=== PATIENT | female | born 1955 | race Caucasian/White ===

== ENCOUNTER 2017-03-10 16:16 | Outpatient (CLI) ==
--- NOTE | 2017-03-10 16:31 | DI ---
EXAM: Chest two view, frontal and lateral views. HISTORY: Cough. COMPARISON: 03/10/2016. FINDINGS: The heart size is normal. There is no pulmonary vascular congestion. The lungs are selene r save for calcified granulomatous changes. No pleural effusion or pneumothorax is seen. No acute osseous abnormality identified. Since the prior study, there has been no significant interval leyva e. IMPRESSION: No acute cardiopulmonary process.
== END 2017-03-10 16:17 | disposition home or self-care (01) ==
LOC: RAD 16:16
PROVIDERS: ATTEND Family Medicine
DX: R05 Cough (principal)

== ENCOUNTER 2017-03-22 15:14 | Outpatient (CLI) ==
--- NOTE | 2017-03-22 15:40 | DI ---
EXAM: Three views of the left foot. History: Left foot trauma. Comparison: Left foot radiograph 02/09/2010 Findings: No acute fracture or dislocation. Mild hallux valgus deformity. Joint spaces are relativ pam preserved. Tiny plantar spur. Impression: 1. No acute osseous abnormality. 2. Mild hallux valgus deformity.
== END 2017-03-22 15:15 | disposition home or self-care (01) ==
LOC: RAD 15:14
PROVIDERS: ATTEND Family Medicine
DX: S99.922A Unspecified injury of left foot, initial encounter (principal)

== ENCOUNTER 2023-01-02 13:34 | Inpatient (IN) ==
[2023-01-02] MEDS ORDERED: MORPHINE 4 MG/ML SYRINGE IVP ONE (14:09)
[2023-01-02] MEDS ORDERED: SODIUM CHLORIDE 1,000 ML IV STA (14:09)
[2023-01-02] MEDS ORDERED: ZOFRAN 4 MG/2 ML IVP STA (14:09)
[2023-01-02 14:42] LABS: HEMOGLOBIN 14.5 g/dl (12.0-16.0); MEAN CORPUSCULAR HEMOGLOBIN 31.1 pg (27.0-31.0); MEAN CORPUSCULAR HGB CONC 32.2 (31.8-35.4); MEAN CORPUSCULAR VOLUME 96.6 fl (81.0-99.0); PLATELET COUNT 225 10^3/uL (140-440); RDW COEFFICIENT OF VARIATION 14.8 % (11.6-14.8); RED BLOOD COUNT 4.66 10^6/ul (4.20-5.40); WHITE BLOOD COUNT 10.12 K/ul (4.6-10.2)
--- NOTE | 2023-01-02 14:52 | ED.PDOC ---
General ED Provider: Dr. JOSE ELIAS BURKS MD Chief Complaint: Hip Pain/Injury Stated Complaint: fall; pain in left hip and left foot. Time Seen by Provider: 01/02/23 14:09 Mode of Arrival: Wheelchair Information Source: Patient Exam Limitations: No limitations Primary Care Provider: KEITH BLACK Nursing and Triage Documentation Reviewed and Agree: Yes Does patient meet sepsis criteria?: No System Inflammatory Response Syndrome: Not Applicable Sepsis Protocol: For patient's 13 years and over: Temp is 96.8 and below OR 101 and greater Pulse >90 BPM Resp >20/minute Acutely Altered Mental Status Are patient's symptoms suggestive of a new infection, such as: -Pneumonia -Skin, Soft Tissue -Endocarditis -UTI -Bone, Joint Infection -Implantable Device -Acute Abdominal Infection -Wound Infection -Meningitis -Blood Stream Catheter Infection -Unknown Musculoskeletal Complaint Exam Hip/Pelvis Complaint/Exam Location of Pain: Reports Left Mechanism of Injury: Reports Trauma Onset/Duration: just [employer]IST Symptoms Are: Still present Initial Severity: Moderate Current Severity: Moderate Character: Reports Sharp Aggravating: Reports Movement and Weight bearing Alleviating: Reports None Associated Signs and Symptoms: Denies Swelling, Redness, Bruising, Fever, Weakness, Dizziness, Syncope, Abdominal pain or Knee pain Able to Bear Weight: No Septic Arthritis Risk Factors: Reports None Related Surgical History: Reports None Pelvis Palpation: Stable Hip/Pelvis Findings: Absent Extremity shortened, Swelling, Ecchymosis, Erythema, Warmth or Blisters Tenderness: Present Left Range of Motion Limited In: Present Flexion, Abduction, Adduction, Internal rotation and External rotation NV Bundle Intact Distal to Injury: Yes Differential Diagnoses: Arthritis, Bursitis, Contusion, Dislocation, Fracture, Sprain and Strain Review of Systems Review Of Systems Constitutional: Reports No symptoms Eyes: Reports No symptoms Ears, Nose, Mouth, Throat: Reports No symptoms Respiratory: Reports No symptoms Cardiac: Reports No symptoms GI: Reports No symptoms : Reports No symptoms Musculoskeletal: Reports Joint pain; Denies Back pain, Joint swelling or Muscle stiffness Skin: Reports No symptoms Neurological: Reports No symptoms Endocrine: Reports No symptoms Hematologic/Lymphatic: Reports No symptoms All Other Systems: Reviewed and Negative Physical Exam Physical Exam Appearance: Reports Well-appearing, Well-nourished and Thin Ill-appearing: None Pain Distress: Moderate Eyes: Reports VALDEZ, EOMI and Conjunctiva clear ENT: Reports Nose normal and Oropharynx normal Neck: Supple Respiratory: Reports Airway patent, Breath sounds equal, Respirations nonlabored and Wheezes; Denies Crackles, Rhonchi or Retractions Cardiovascular: Reports RRR, Pulses normal and No murmur GI/: Reports Soft and Nontender Musculoskeletal: Reports Limited ROM and Other (on inspection of bilateral lower ext. the left leg is about 1 inch shorter than the right. there is no deformity of the lower ext. there is exquisite tenderness to all / any movement of the left hip. there is no ability to test ROM due to her pain complaint. ) Skin: Reports Warm, Dry and Normal color Neurological: Reports Sensation intact and Motor intact Psychiatric: Reports Affect appropriate Interpretation EKG Interpretation EKG Interpretation By: ED Physician Time of EKG #1: 14:17 Rate: Normal Rhythm: Sinus Ectopy: None West: NL ST Segment: Normal Interpretation: normal EKG Radiology Interpretation Radiology Interpretation By: Radiologist Radiology Results: Positive Exam Interpreted: CT Scan Xray Comments: displaced superior ramus fracture extends to inferior ramus Physician Notification Case Discussed Physician Notified: Dr. Black Time of Notification: 17:50 Comments: discussed this pt. with Dr. Black. He would prefer the hospitalist admit. Physician Notified: [place] - hospitalist Time of Notification: 17:58 Comments: discussed pt. with hospitalist, who will agree to admit the pt. for pain control and PT Critical Care Note Critical Care Note Total Critical Care Time (mins): 0 Course Course 01/02/23 14:31 01/02/23 14:31 Orders, Labs, Meds: Lab Review 01/02/23 01/02/23 14:31 15:15 WBC 10.12 RBC 4.66 Hgb 14.5 Hct 45.0 MCV 96.6 MCH 31.1 H MCHC 32.2 RDW Coeff of Katharina 14.8 Plt Count 225 Neutrophils % (Manual) 90.0 H Lymphocytes % (Manual) 5.0 L Monocytes % (Manual) 5.0 Anisocytosis Not present Sodium 138.8 Potassium 4.37 Chloride 107.3 H Carbon Dioxide 27.1 Anion Gap 8.77 BUN 14.8 Creatinine 0.87 Estimated GFR (MDRD) 65.00 BUN/Creatinine Ratio 17.01 Glucose 87.0 Calcium 8.89 Total Bilirubin 0.36 AST 25.1 ALT 20.9 Alkaline Phosphatase 139.4 Total Protein 6.99 Albumin 4.09 Globulin 2.90 Albumin/Globulin Ratio 1.41 Urine Color Yellow Urine Clarity Clear Urine pH 7.0 Ur Specific [place] 1.015 Urine Protein Negative Urine Glucose (UA) Negative Urine Ketones Negative Urine Blood Negative Urine Nitrite Negative Urine Bilirubin Negative Urine Urobilinogen 0.2 Ur Leukocyte Esterase Negative Orders Category Date Time Status EKG-(ED ONLY) Stat CARDIO 01/02/23 14:09 Completed ED CATHETER INSERTION AND CARE .ONCE EMERGENCY 01/02/23 17:09 Active CBC W/ AUTO DIFF Stat LAB 01/02/23 14:31 Completed CMP [COMPREHENSIVE METABOLIC PANEL] Stat LAB 01/02/23 14:31 Completed MANUAL DIFFERENTIAL Stat LAB 01/02/23 14:31 Completed URINALYSIS C & S IF INDICATED Stat LAB 01/02/23 15:15 Completed Diazepam Syringe [Valium Syringe] Meds 01/02/23 15:45 Discontinued 5 mg IVP ONCE ONE Morphine Sulfate [Morphine 4 mg/ml Syringe] Meds 01/02/23 14:09 Discontinued 4 mg IVP ONCE ONE Ondansetron HCl/Pf [Zofran 4 mg/2 ml] Meds 01/02/23 14:09 Discontinued 4 mg IVP ONCE STA Sodium Chloride 0.9% [Sodium Chloride] 1,000 ml Meds 01/02/23 14:09 [address]con tin[address] IV B[address] PELVIS W/O CONTRAST Stat RADS 01/02/23 15:59 Completed FOOT, LEFT 3 VIEWS Stat RADS 01/02/23 14:38 Completed HIP, LEFT 2VWS W OR W/O PELVIS Stat RADS 01/02/23 14:38 Completed Medications Discontinued Medications Generic Name Dose Route Start Last Admin Trade Name Denilson PRN Reason Stop Dose Admin Diazepam 5 mg 01/02/23 15:45 01/02/23 15:59 Diazepam 10 Mg/2 Ml Disp.Syrin IVP 01/02/23 15:46 5 mg ONCE ONE Administration Sodium Chloride 1,000 mls @ 1,000 mls/hr 01/02/23 14:09 01/02/23 14:28 Sodium Chloride IV 01/02/23 15:08 1,000 mls/hr BOLUS STA Administration Morphine Sulfate 4 mg 01/02/23 14:09 01/02/23 14:29 Morphine Sulfate 4 Mg/Ml Syringe IVP 01/02/23 14:10 4 mg ONCE ONE Administration Ondansetron HCl 4 mg 01/02/23 14:09 01/02/23 14:29 Ondansetron Hcl/Pf 4 Mg/2 Ml Sdv IVP 01/02/23 14:10 4 mg ONCE STA Administration Vital Signs: Temp Pulse Resp BP Pulse Ox 01/02/23 13:40 97.9 F 71 16 123/76 96 Discharge Plan Discharge Patient Disposition: PLACED OBSERVATION Discharge Problem: Closed fracture of inferior pubic ramus, Closed fracture of superior ramus of l eft pubis Prescriptions: No Action sertraline 100 mg tablet 100 mg PO DAILY budesonide-formoterol [Symbicort] 160-4.5 mcg/actuation HFA aerosol inhaler 1 inh inhalation BID hydrocodone-acetaminophen 5-325 mg tablet 1 tab PO Q6H PRN (Reason: moderate pain (scale score 5-6)) Spiriva Respimat 2.5 mcg/actuation mist 2 inh inhalation DAILY lamotrigine [Lamictal] 200 MG tablet 400 mg PO BID zonisamide 100 MG capsule 100 mg PO BID lorazepam [Ativan] 0.5 MG tablet 0.5 mg PO BID PRN (Reason: Anxiety) esomeprazole magnesium 40 MG capsule,delayed release(DR/EC) 40 mg PO DAILY fingolimod [Gilenya] 0.5 MG capsule 0.5 mg PO DAILY Did you review [place] MASTIC[place] for ALL controlled substances?: Not Applicable ED Provider: JOSE ELIAS BURKS Condition: Stable Physician Progress Note: []
[2023-01-02 14:56] LABS: ALANINE AMINOTRANSFERASE 20.9 U/L (0-35); ALBUMIN 4.09 g/dL (3.5-5.0); ALKALINE PHOSPHATASE 139.4 U/L (53-141); ASPARTATE AMINO TRANSFERASE 25.1 U/L (14-36); BILIRUBIN,TOTAL 0.36 mg/dL (0.2-1.3); BLOOD UREA NITROGEN 14.8 mg/dL (7-17); CALCIUM 8.89 mg/dL (8.4-10.2); CARBON DIOXIDE 27.1 mmol/L (22-30.0); CHLORIDE 107.3 mmol/L (98-107); CREATININE 0.87 mg/dL (0.60-1.30); POTASSIUM 4.37 mmol/L (3.5-5.1); SODIUM 138.8 mmol/L (134.5-145); TOTAL PROTEIN 6.99 g/dL (6.3-8.2)
[2023-01-02 15:05] LABS: ANISOCYTOSIS NOT PRESENT (NOT PRESENT)
[2023-01-02 15:22] LABS: BILIRUBIN,URINE Negative (NEGATIVE); CLARITY,URINE Clear (CLEAR); COLOR,URINE Yellow (YELLOW); GLUCOSE, URINE (UA) Negative (NEGATIVE); KETONES,URINE Negative (NEGATIVE); LEUKOCYTE ESTERASE ,URINE Negative (NEGATIVE); NITRITE,URINE Negative (NEGATIVE); PROTEIN,URINE Negative (NEGATIVE); URINE, BLOOD Negative (NEGATIVE); UROBILINOGEN,URINE 0.2 (0.2)
--- NOTE | 2023-01-02 15:24 | DI ---
EXAM: LEFT HIP AND PELVIS RADIOGRAPH TECHNIQUE: 3 views. Frontal pelvis. Frontal and lateral left hip. HISTORY: Left hip pain and pelvic pain. COMPARISON: None. FINDINGS: There is no fracture or dislocation. The soft tissues are normal. Articular surfaces are intact. IMPRESSION: 1. Unremarkable images of the left hip and pelvis.
--- NOTE | 2023-01-02 15:25 | DI ---
EXAM: LEFT FOOT RADIOGRAPH TECHNIQUE: 3 views. Frontal, lateral, and oblique. HISTORY: Left foot pain. COMPARISON: None. FINDINGS: There is a healing nondisplaced fracture of the fifth metatarsal bone distally with oblique configura tion. There is moderate hallux valgus. Mild soft tissue swelling laterally. There is a small plantar spur. IMPRESSION: 1. Healing fracture of the distal fifth metatarsal bone.
[2023-01-02] MEDS ORDERED: VALIUM SYRINGE IVP ONE (15:45)
--- NOTE | 2023-01-02 16:53 | CT ---
EXAM: CT PELVIS WITHOUT CONTRAST. HISTORY: Wall with left hip pain. Pain through the left side of the groin. COMPARISON: Pelvis and left hip radiograph 01/02/2023. TECHNIQUE: Noncontrast CT images of the pelvis were obtained. Axial reconstructions with sagittal a nd coronal reformats were provided. FINDINGS: Mild intervertebral the space narrowing at the level of the visualized lower lumbar spine. Demineral ization. Comminuted fracture with mild displacement involving the medial portion of the left superio r pubic ramus through the parasymphyseal portion of the bone with minimally-displaced fracture throug h the left inferior pubic ramus as well. Minimal cortical irregularity and buckling of the anterior cortex of the left sacral ala, concerning for subtle insufficiency fracture at that level. Degenerative spurring at the sacroiliac joints with moderate degenerative spurring at the pubic symph ysis. Mild degenerative spurring of the hip joints. No acute fracture identified. The level of the proximal femurs. Mild subcutaneous edema without a deep decubitus ulcer or drainable fluid collection. Soft tissue sw elling is most pronounced posteriorly in the inferior left gluteal region through the posteromedial a spect of the proximal thighs. No deep soft tissue gas. Robles catheter in place. No pathologically enlarged intrapelvic lymph nodes or pelvic soft tissue mass. Scattered vascular ca lcifications. No free fluid in the pelvis. IMPRESSION: Acute fractures with mild displacement involving the left superior and inferior pubic rami as describ ed as well as suspected subtle insufficiency fracture of the left sacrum. Demineralization. Soft tissue swelling without drainable fluid collection. Additional chronic / degenerative findings as described above All CT scans are performed using dose optimization techniques as appropriate to the performed exam an d include at least one of the following: Automated exposure control, adjustment of the mA and/or kV according t o size, and the use of iterative reconstruction technique.
[2023-01-02] MEDS ORDERED: TYLENOL PO PRN (19:08)
[2023-01-02] MEDS ORDERED: DULCOLAX PO PRN (19:08)
[2023-01-02] MEDS ORDERED: ZOFRAN 4 MG/2 ML IVP PRN (19:12)
[2023-01-02 19:24] VITALS: BMI 21.1
[2023-01-02] MEDS: COLACE PO SCH (20:03)
[2023-01-02] MEDS: ZANAFLEX PO PRN (22:43)
[2023-01-03] MEDS ORDERED: FLEXERIL PO ONE (01:51)
[2023-01-03] MEDS: MORPHINE 2 MG/ML SYRINGE IVP PRN (03:00)
[2023-01-03 05:20] LABS: BASOPHILS % (AUTO) 0.1 % (0.0-3.0); EOSINOPHILS # (AUTO) 0.2 K/ul (0.0-0.7); EOSINOPHILS % (AUTO) 2.5 % (0.0-7.0); HEMATOCRIT 43.1 % (37.0-47.0); HEMOGLOBIN 13.7 g/dl (12.0-16.0); IMMATURE GRANULOCYTE % (AUTO) 0.3 % (0.0-5.0); LYMPHOCYTES # (AUTO) 0.7 K/uL (0.60-3.4); LYMPHOCYTES % (AUTO) 9.6 (10.0-50.0); MEAN CORPUSCULAR HEMOGLOBIN 30.7 pg (27.0-31.0); MEAN CORPUSCULAR HGB CONC 31.8 (31.8-35.4); MEAN CORPUSCULAR VOLUME 96.6 fl (81.0-99.0); MONOCYTES # (AUTO) 0.7 K/uL (0.4-2.0); MONOCYTES % (AUTO) 10.8 (0-10); NEUTROPHILS # (AUTO) 5.2 K/ul (2.0-6.9); NEUTROPHILS % (AUTO) 76.7 % (42.2-75.2); PLATELET COUNT 201 10^3/uL (140-440); RDW COEFFICIENT OF VARIATION 14.7 % (11.6-14.8); RED BLOOD COUNT 4.46 10^6/ul (4.20-5.40); WHITE BLOOD COUNT 6.75 K/ul (4.6-10.2)
[2023-01-03 05:36] LABS: ALANINE AMINOTRANSFERASE 16.9 U/L (0-35); ALBUMIN 3.69 g/dL (3.5-5.0); ALKALINE PHOSPHATASE 135.5 U/L (53-141); ASPARTATE AMINO TRANSFERASE 23.5 U/L (14-36); BILIRUBIN,TOTAL 0.36 mg/dL (0.2-1.3); BLOOD UREA NITROGEN 14.5 mg/dL (7-17); CALCIUM 8.61 mg/dL (8.4-10.2); CARBON DIOXIDE 27.7 mmol/L (22-30.0); CHLORIDE 109.2 mmol/L (98-107); CREATININE 0.84 mg/dL (0.60-1.30); GLUCOSE 98.5 mg/dL (74-106); POTASSIUM 4.42 mmol/L (3.5-5.1); SODIUM 138.6 mmol/L (134.5-145); TOTAL PROTEIN 6.42 g/dL (6.3-8.2)
[2023-01-03] MEDS ORDERED: ATIVAN PO PRN (07:20)
[2023-01-03] MEDS: ZANAFLEX PO PRN (08:03)
[2023-01-03] MEDS: SPIRIVA IH SCH (08:39)
[2023-01-03] MEDS: SYMBICORT 160-4.5 MCG INHALER IH SCH ×2 (08:39→20:09)
[2023-01-03] MEDS: MIRALAX PO SCH (08:40)
[2023-01-03] MEDS: COLACE PO SCH ×2 (08:41→20:08)
[2023-01-03] MEDS: PROTONIX PO SCH (08:44)
[2023-01-03] MEDS: ZOLOFT PO SCH (08:44)
[2023-01-03] MEDS ORDERED: ESOMEPRAZOLE MAGNESIUM 40 MG PO SCH (09:00)
[2023-01-03] MEDS ORDERED: FINGOLIMOD 0.5 MG PO SCH (09:00)
[2023-01-03] MEDS ORDERED: NON-FORMULARY MEDICATION (Tiotropium Bromide [Spiriva Respimat] 2.5 mcg/actuation mist) IH SCH (09:00)
[2023-01-03] MEDS ORDERED: LAMICTAL PO SCH ×2 (09:00→21:00)
[2023-01-03] MEDS ORDERED: ZONISAMIDE 100 MG PO SCH (09:00)
--- NOTE | 2023-01-03 09:39 | PCM ---
Date of Service Date Seen by Provider: 01/03/23 Time Seen by Provider: 08:50 Admit Day/Time Admission Date: 01/02/23 Admission Time: 19:08 Reason for Admission Chief Complaint: FRACTURED PELVIS, INTRACTABLE PAIN, L FOOT FRACTUR Hospital Provider Hospital Provider: SHANEL SHARPE PA-C, [facility] Primary Care Physician Primary Care Physician: KEITH BLACK History of Present Illness History of Present Illness: Patient is a 67-year-old female with past medical history of right lung cancer, multiple sclerosis, seizures, COPD, migraines who presented to the ER with a ground-level fall. She states that she was just getting up to go inside and fell onto concrete onto her left side. She denies any loss of consciousness. No chest pain, dizziness prior to fall. She states she does have a history of osteoporosis but has been waiting insurance to get medication approved. In the ER she was found to have a left superior and inferior pubic rami fractures. She also has a fracture of the sacrum. No hip fracture. She was given fluids, morphine, Valium in the ER. Robles was inserted. She was admitted to [facility]. Overnight patient continued to have pain and required muscle relaxers and mor phine. Morphine did cause her oxygen to drop slightly. She mostly complains of spasm-like pain in her left hip and groin. She has a chronic cough from her COPD and every time she coughs she has significant pain in her hip. Regarding her seizure she states that this is very controlled and she has not had one in a long time. Regarding her left lung cancer she is status post chemo and radiation. She followed with oncology in [place]. She got her port taken out just a few weeks ago since it had not been used in a long time. She states because of her radiation she is chronically wheezy at baseline. Case Discussed With Case Discussed With: Patient's case was discussed with the ER Physicians, Dr. Genao [facility] Medical History Anxiety F41.9 - Anxiety disorder, unspecified (ICD-10) Cataracts, bilateral H26.9 - Unspecified cataract (ICD-10) COPD (chronic obstructive pulmonary disease) J44.9 - Chronic obstructive pulmonary disease, unspecified (ICD-10) Depression F32.A - Depression, unspecified (ICD-10) Lung cancer C34.90 - Malignant neoplasm of unspecified part of unspecified bronchus or lung (ICD-10) Migraines G43.909 - Migraine, unspecified, not intractable, without status migrainosus (ICD-10) Multiple sclerosis G35 - Multiple sclerosis (ICD-10) Seizures R56.9 - Unspecified convulsions (ICD-10) Varicose vein of leg I83.90 - Asymptomatic varicose veins of unspecified lower extremity (ICD-10) Surgical History H/O: hysterectomy Z90.710 - Acquired absence of both cervix and uterus (ICD-10) Hx of appendectomy Z90.49 - Acquired absence of other specified parts of digestive tract (ICD- 10) Social History Smoking and tobacco status: Current every day smoker Tobacco type: cigarettes Smoking packs per day: 1 Smoking cigarettes per day: 20.0 Alcohol intake: never Substance use type: marijuana and other Counseling given: No (Pt reports using THC gummies ) Allergies Allergies Allergy/AdvReac Type Severity Reaction Status Date / Time carbamazepine [From Tegretol] AdvReac Dizziness Verified 01/02/23 19:27 levetiracetam [From Keppra] AdvReac CAUSES Verified 01/02/23 19:27 KNOTS TO COME UP phenytoin [From Dilantin] AdvReac INCREASES Verified 01/02/23 19:27 LIVER ENZYMES Current Medications Home Medications esomeprazole magnesium 40 mg capsule,delayed release 40 mg PO DAILY 03/16/19 [History Confirmed 01/02/23 Last Taken 01/02/23 08:30] fingolimod 0.5 mg capsule (Gilenya) 0.5 mg PO DAILY 03/16/19 [History Confirmed 01/02/23 Last Taken 01/02/23 08:30] lamotrigine 200 mg tablet (Lamictal) 400 mg PO BID 03/16/19 [History Confirmed 01/02/23 Last Taken 01/02/23 08:30] lorazepam 0.5 mg tablet (Ativan) 0.5 mg PO BID PRN Anxiety 03/16/19 [History Confirmed 01/02/23 Last Taken 12/31/22] zonisamide 100 mg capsule 100 mg PO BID 03/16/19 [History Confirmed 01/02/23 Last Taken 01/02/23 08:30] budesonide-formoterol HFA 160 mcg-4.5 mcg/actuation aerosol inhaler (Symbicort) 1 inh inhalation BID 01/02/23 [History Confirmed 01/02/23 Last Taken 01/02/23 08:30] hydrocodone 5 mg-acetaminophen 325 mg tablet 1 tab PO Q6H PRN moderate pain (scale score 5-6) 01/02/23 [History Confirmed 01/02/23 Last Taken 01/02/23 10:30] sertraline 100 mg tablet 100 mg PO DAILY 01/02/23 [History Confirmed 01/02/23 Last Taken 01/02/23 08:30] tiotropium bromide 2.5 mcg/actuation mist for inhalation (Spiriva Respimat) 2 inh inhalation DAILY 01/02/23 [History Confirmed 01/02/23 Last Taken 01/02/23 08:30] Home Acetaminophen (Acetaminophen 325 Mg Tablet) 650 mg PO Q4H PRN PRN Reason: Mild Pain Hydrocodone Bitart/Acetaminophen (Hydrocodone Bit/Acetaminophen 5/325 Mg Tablet) 1 tab PO Q6HR PRN PRN Reason: Pain Bisacodyl (Bisacodyl 5 Mg Tablet.Dr) 5 mg PO DAILY PRN PRN Reason: Constipation Budesonide/Formoterol Fumarate (Budesonide/Formoterol Fumarate 160/4.5 Mcg Inhaler) 1 puff IH BID [facility] Last Admin: 01/03/23 08:39 Dose: 1 puff Cyclobenzaprine HCl (Cyclobenzaprine Hcl 10 Mg Tablet) 10 mg PO TID PRN PRN Reason: Spasms Docusate Sodium (Docusate Sodium 100 Mg Capsule) 100 mg PO BID [facility] Last Admin: 01/03/23 08:41 Dose: 100 mg Lamotrigine (Lamotrigine 25 Mg Tablet) 400 mg PO BID [facility] Last Admin: 01/03/23 08:42 Dose: 400 mg Lorazepam (Lorazepam 0.5 Mg Tablet) 0.5 mg PO BID PRN PRN Reason: Anxiety Morphine Sulfate (Morphine Sulfate 2 Mg/Ml Syringe) 2 mg IVP Q4HR PRN PRN Reason: pain Last Admin: 01/03/23 03:00 Dose: 2 mg Non-Formulary Medication (Fingolimod [Gilenya]) 0.5 mg PO DAILY [facility] Last Admin: 01/03/23 08:27 Dose: Not Given Non-Formulary Medication (Zonisamide) 100 mg PO BID [facility] Last Admin: 01/03/23 08:27 Dose: Not Given Ondansetron HCl (Ondansetron Hcl/Pf 4 Mg/2 Ml Sdv) 4 mg IVP Q6H PRN PRN Reason: Nausea / Vomiting Pantoprazole Sodium (Pantoprazole Sodium 40 Mg Tablet.Dr) 40 mg PO QDAC [facility] Last Admin: 01/03/23 08:44 Dose: 40 mg Polyethylene Glycol (Polyethylene Glycol 17 Gm Powd.Pack) 17 gm PO DAILY [facility] Last Admin: 01/03/23 08:40 Dose: 17 gm Sertraline HCl (Sertraline Hcl 50 Mg Tablet) 100 mg PO DAILY [facility] Last Admin: 01/03/23 08:44 Dose: 100 mg Tiotropium [place] (Tiotropium [place] 18 Mcg Cap.W.Dev) 1 cap IH DAILY [facility] Last Admin: 01/03/23 08:39 Dose: 1 cap Discontinued Medications Cyclobenzaprine HCl (Cyclobenzaprine Hcl 10 Mg Tablet) 10 mg PO ONCE ONE Stop: 01/03/23 01:52 Last Admin: 01/03/23 02:11 Dose: 10 mg Diazepam (Diazepam 10 Mg/2 Ml Disp.Syrin) 5 mg IVP ONCE ONE Stop: 01/02/23 15:46 Last Admin: 01/02/23 15:59 Dose: 5 mg Sodium Chloride (Sodium Chloride) 1,000 mls @ 1,000 mls/hr IV BOLUS STA Stop: 01/02/23 15:08 Last Admin: 01/02/23 14:28 Dose: 1,000 mls/hr Morphine Sulfate (Morphine Sulfate 4 Mg/Ml Syringe) 4 mg IVP ONCE ONE Stop: 01/02/23 14:10 Last Admin: 01/02/23 14:29 Dose: 4 mg Non-Formulary Medication (Esomeprazole Magnesium) 40 mg PO DAILY [facility] Ondansetron HCl (Ondansetron Hcl/Pf 4 Mg/2 Ml Sdv) 4 mg IVP ONCE STA Stop: 01/02/23 14:10 Last Admin: 01/02/23 14:29 Dose: 4 mg Tizanidine HCl (Tizanidine Hcl 4 Mg Tablet) 2 mg PO TID PRN PRN Reason: Spasms Last Admin: 01/03/23 08:03 Dose: 2 mg Review of Systems Constitutional: Denies Fever, Fatigue or Weakness Head: Reports Normocephalic and Atraumatic Eyes: Denies Vision Changes Ears: Denies Pain or Drainage Nose: Denies Post Nasal Drip Mouth: Denies Sores Throat: Denies Sore Throat or Difficulty Swallowing Cardiovascular: Denies Chest pain, Chest Pressure, Edema or Syncope Respiratory: Reports Shortness of air (+chronic ) and Wheeze (+Chronic ); Denies Cough Gastrointestinal: Denies Nausea, Vomiting, Diarrhea or Abdominal pain Genitourinary: Denies Dysuria or Frequency Musculoskeletal: Reports Other (+left hip/pelvis pain and spasms ) Dermatologic: Denies Rashes Neurological: Reports Seizure (+history of, well controlled ); Denies Headache, Dizziness, Syncope or Loss of Conciousness Physical examination Most Recent Vital Signs: Most Recent Vital Signs Temperature 97.2 F L 01/03/23 05:20 Temperature Source Temporal Artery Scan 01/03/23 05:20 Temperature Source Infrared 01/02/23 13:40 Pulse Rate 76 01/03/23 05:20 Respiratory Rate 16 01/03/23 05:20 Blood Pressure 104/57 L 01/03/23 05:20 Blood Pressure Mean 72 01/03/23 05:20 Blood Pressure Left Arm 114/69 01/02/23 18:32 Blood Pressure Location Left Arm 01/03/23 05:20 Blood Pressure Position Sitting 01/03/23 05:20 O2 Sat by Pulse Oximetry 92 L 01/03/23 06:00 Oxygen Delivery Method Nasal Cannula 01/03/23 06:00 Oxygen Flow Rate 1 01/03/23 06:00 Height 5 ft 1 in 01/02/23 18:32 Weight 112 lb 01/02/23 18:32 Telemetry Type Remote Telemetry 01/03/23 07:00 Telemetry Monitoring Continues 01/03/23 07:00 Irregular Telemetry Rate (Approximate) 60-70 BPM 01/03/23 07:00 Telemetry Heart Rate 69 01/03/23 07:00 EKG OK Interval 0.13 01/03/23 07:00 EKG QRS Interval 0.09 01/03/23 07:00 EKG QT Interval 0.39 01/03/23 02:30 Telemetry Strip Reading Sinus Arrhythmia 01/03/23 07:00 Appearance: Positive Well-appearing, Well-nourished, No Apparent Distress and Alert and Oriented x3 Skin: Positive [place], Warm and Good Turgor; Negative Rashes HEENT: Positive Normocephalic and Atraumatic Neck: Positive Supple and Midline Trachea Chest/Lungs: Positive Symmetrical With Equal Breath Sounds and Wheezes (mansi) Heart: Positive RRR GI/: Positive Soft, Nontender and Bowel Sounds Normal Musculoskeletal: Positive Decreased ROM (left hip - due to pain. ) Extremities: Positive Signs of Trauma (Mild bruising noted to left upper thigh/hip), Intact Peripheral Pulses and Joint Tenderness (Left hip, specifically in left groin area ); Negative Edema Neurological: Positive Cranial Nerves Intact, Alert, Oriented and Other (+weakness on left lower ext) Psychiatric: Positive Oriented x4, Appropriate Mood, Appropriate Affect and Intact Memory Labs This Visit Labs This Visit: Labs This Visit 01/02/23 01/02/23 01/03/23 14:31 15:15 05:08 WBC 10.12 6.75 RBC 4.66 4.46 Hgb 14.5 13.7 Hct 45.0 43.1 MCV 96.6 96.6 MCH 31.1 H 30.7 MCHC 32.2 31.8 RDW Coeff of Katharina 14.8 14.7 Plt Count 225 201 Immature Gran % (Auto) 0.3 Neut % (Auto) 76.7 H Lymph % (Auto) 9.6 L [place] % (Auto) 10.8 H Eos % (Auto) 2.5 Baso % (Auto) 0.1 Neut # (Auto) 5.2 Lymph # (Auto) 0.7 [place] # (Auto) 0.7 Eos # (Auto) 0.2 Baso # (Auto) 0.0 Immature Gran # (Auto) 0.0 Neutrophils % (Manual) 90.0 H Lymphocytes % (Manual) 5.0 L Monocytes % (Manual) 5.0 Anisocytosis Not present Sodium 138.8 138.6 Potassium 4.37 4.42 Chloride 107.3 H 109.2 H Carbon Dioxide 27.1 27.7 Anion Gap 8.77 6.12 BUN 14.8 14.5 Creatinine 0.87 0.84 Estimated GFR (MDRD) 65.00 67.00 BUN/Creatinine Ratio 17.01 17.26 Glucose 87.0 98.5 Calcium 8.89 8.61 Total Bilirubin 0.36 0.36 AST 25.1 23.5 ALT 20.9 16.9 Alkaline Phosphatase 139.4 135.5 Total Protein 6.99 6.42 Albumin 4.09 3.69 Globulin 2.90 2.73 Albumin/Globulin Ratio 1.41 1.35 Urine Color Yellow Urine Clarity Clear Urine pH 7.0 Ur Specific [place] 1.015 Urine Protein Negative Urine Glucose (UA) Negative Urine Ketones Negative Urine Blood Negative Urine Nitrite Negative Urine Bilirubin Negative Urine Urobilinogen 0.2 Ur Leukocyte Esterase Negative Imaging Imaging: EXAM: LEFT FOOT RADIOGRAPH TECHNIQUE: 3 views. Frontal, lateral, and oblique. HISTORY: Left foot pain. COMPARISON: None. FINDINGS: There is a healing nondisplaced fracture of the fifth metatarsal bone distally with oblique configuration. There is moderate hallux valgus. Mild soft tissue swelling laterally. There is a small plantar spur. IMPRESSION: 1. Healing fracture of the distal fifth metatarsal bone. EXAM: LEFT HIP AND PELVIS RADIOGRAPH TECHNIQUE: 3 views. Frontal pelvis. Frontal and lateral left hip. HISTORY: Left hip pain and pelvic pain. COMPARISON: None. FINDINGS: There is no fracture or dislocation. The soft tissues are normal. Articular surfaces are intact. IMPRESSION: 1. Unremarkable images of the left hip and pelvis. EXAM: CT PELVIS WITHOUT CONTRAST. HISTORY: Wall with left hip pain. Pain through the left side of the groin. COMPARISON: Pelvis and left hip radiograph 01/02/2023. TECHNIQUE: Noncontrast CT images of the pelvis were obtained. Axial reconstructions with sagittal and coronal reformats were provided. FINDINGS: Mild intervertebral the space narrowing at the level of the visualized lower lumbar spine. Demineralization. Comminuted fracture with mild displacement involving the medial portion of the left superior pubic ramus through the parasymphyseal portion of the bone with minimally-displaced fracture through the left inferior pubic ramus as well. Minimal cortical irregularity and buckling of the anterior cortex of the left sacral ala, concerning for subtle insufficiency fracture at that level. Degenerative spurring at the sacroiliac joints with moderate degenerative spurring at the pubic symphysis. Mild degenerative spurring of the hip joints. No acute fracture identified. The level of the proximal femurs. Mild subcutaneous edema without a deep decubitus ulcer or drainable fluid collection. Soft tissue swelling is most pronounced posteriorly in the inferior left gluteal region through the posteromedial aspect of the proximal thighs. No deep soft tissue gas. Robles catheter in place. No pathologically enlarged intrapelvic lymph nodes or pelvic soft tissue mass. Scattered vascular calcifications. No free fluid in the pelvis. IMPRESSION: Acute fractures with mild displacement involving the left superior and inferior pubic rami as described as well as suspected subtle insufficiency fracture of the left sacrum. Demineralization. Soft tissue swelling without drainable fluid collection. Additional chronic / degenerative findings as described above Review Statement Review Statement: I have independently reviewed and interpreted the labs/EKGs/imaging that were ordered by the ER provider. I have reviewed all outside records that are available currently in our EMR including imaging/notes/labs from previous visits. Plan Plan: A&P: 1. Severe intractable pain in setting of superior and inferior pubic rami fractures and sacral fracture - Requiring IV pain control and oral muscle relaxers. PT/OT. Potential swing bed candidate. [place] ordered prn as well. Will do flexeril tid prn, however notified patient to let us know if it makes her too drowsy. 2. Acute superior and inferior pubic rami and sacral fracture - Plan as above. 3. COPD- Continue home meds 4. MS - Continue home meds 5. Seizures, controlled - Continue home meds 6. GERD - Continue home meds 7. Anxiety - Continue home meds DVT Prophylaxis: Lovenox Time Spent: Greater than 80 minutes spent with patient, 50% of the time spent with this patient was devoted to counseling and coordination of care. [facility] minutes spent discussing advance care planning. DNR Smoking Cessation: 3 minutes spent discussing smoking cessation. Disposition: Will require therapy and pain control, likely a good swingbed candidate Admit to: Inpatient Discussed Plan of Care with Dr. Talib Mathews. Medications Medication Orders: Medications Ordered Category Date Time Status Acetaminophen [Tylenol] Meds 01/02/23 19:08 Active 650 mg PO Q4H PRN Bisacodyl [Dulcolax] Meds 01/02/23 19:08 Active 5 mg PO DAILY PRN Budesonide/Formoterol Fumarate [Symbicort 160-4.5 Mcg Meds 01/03/23 09:00 Active Inhaler] 1 puff IH BID Docusate Sodium [Colace] Meds 01/02/23 21:00 Active 100 mg PO BID Hydrocodone Bit/Acetaminophen [[place] 5-325] Meds 01/02/23 19:08 Active 1 tab PO Q6HR PRN Lamotrigine [Lamictal] Meds 01/03/23 09:00 Active 400 mg PO BID Lorazepam [Ativan] Meds 01/03/23 07:20 Active 0.5 mg PO BID PRN Morphine Sulfate [Morphine 2 mg/ml Syringe] Meds 01/02/23 19:08 Active 2 mg IVP Q4HR PRN Ondansetron HCl/Pf [Zofran 4 mg/2 ml] Meds 01/02/23 19:12 Active 4 mg IVP Q6H PRN Pantoprazole Sodium [Protonix] Meds 01/03/23 09:00 Active 40 mg PO QDAC Polyethylene Glycol 3350 [Miralax] Meds 01/03/23 09:00 Active 17 gm PO DAILY Sertraline HCl [Zoloft] Meds 01/03/23 09:00 Active 100 mg PO DAILY Tiotropium [place] [Spiriva] Meds 01/03/23 09:00 Active 1 cap IH DAILY Tizanidine HCl [Zanaflex] Meds 01/02/23 22:07 Active 2 mg PO TID PRN fingolimod [Gilenya] Meds 01/03/23 09:00 Active 0.5 mg PO DAILY zonisamide Meds 01/03/23 09:00 Active 100 mg PO BID
[2023-01-03] MEDS: NORCO 5-325 PO PRN ×2 (11:46→20:09)
--- NOTE | 2023-01-03 11:56 | RS.PTINEVL ---
Subjective Patient information Date of Evaluation: 01/03/23 Date of Arrival on Unit: 01/02/23 Admitted From:: Home Diagnosis: s/p fall, L sup/inf pubic rami fx and fx of sacrum Usual Living Arrangement: niece & 2 kids lives w/ pt Living Arrangement Comments: Pt niece and her 2 kids lives with her Home Environment: House and Stairs (few) (1 step) Medical History: COPD and Cancer (lung) Medical History Comments:: osteoporosis, seizures, multiple sclerosis, migraines, anxiety LATEX ALLERGY?: No Surgical History: Hysterectomy Surgical History Comments:: appey Medications: see chart Subjective Information/ Patient Comments:: pt states she was coming into house from the porch and fell. She states that she does not know why she fell. Level of function Prior to this admission, the patient could do the following:: Independent Selfcare, Independent ADL's, Independent Ambulation (without AD ) and Drive Current Level of Function: Partially Dependent Current Equipment Used at Home: has a rwx at home but did not have to use it. Pain Assessement Location pelvis: Description: Sharp, Throbbing and Aching Intensity: 8 Pain Behavior: Moaning, Guarding and Facial Grimacing Pain Aggravating Factors: Changing Position, Exercise/Activity, Standing and Sitting Pain Alleviating Factors: Medication Interventions Objective Patient Orientation: Person, Place, Time and Situation Current Interventions: Telemetry and Robles Catheter Observation: bruising to L lat foot, skin tear L elbow. Range of Motion ROM Right Upper Extremity AROM: WFL's Left Upper Extremity AROM: WFL's Right Lower Extremity AROM: WFL's Left Lower Extremity AROM: Slight limitation (limited hip flex) Muscle Strength Muscle Strength Right Upper Extremity: Mild Weakness (grossly 4/5 ) Left Upper Extremity: Mild Weakness (grossly 4/5 ) Right Lower Extremity: Mild Weakness (hip flex 4/5, knee flex/ext 4+/5, ankle DF/PF 4+/5 ) Left Lower Extremity: Mild Weakness (L hip 3-/5, knee flex/ext 4-/5, ankle DF/PF 4-/5) Sensation Sensation Right Upper Extremity: Intact/Normal Left Upper Extremity: Intact/Normal Right Lower Extremity: Intact/Normal Left Lower Extremity: Intact/Normal Palpation Palpation Findings: Tenderness (LLE including L foot ) Balance Sitting Balance and Reactions Static Sitting Balance: Fair Dynamic Sitting Balance: Fair Standing Balance and Reactions Static Standing Balance: Poor Dynamic Standing Balance: Poor Functional Mobility Bed Mobility Rolling R/L: Mod Assist and 1 person assist Scooting: Mod Assist and 1 person assist Supine to Sit: Mod Assist and 1 person assist Transfers Sit to Stand: Min Assist, Mod Assist and 1 person assist Stand to Sit: Min Assist and 1 person assist Safety Awareness Safety Awareness: Fair BAIRON INDEX SCORE: n/a Ambulation Ambulation Weight Bearing Status: WBAT Assistive Device Used: Rolling Walker Orthotic/Prosthetic Device: Yes (cast shoe L foot) Distance: 5 steps to bedside chair Assistance needed with Ambulation: Min Assist and 1 person assist Gait Deviations: Wide Based gait, Step-to gait, Forward posture and Short stride Factors Affecting Ambulation: Decreased Balance, Breathing/O2 Saturation (2 liters O2), Pain, Weakness, Decreased ROM, Decreased Safety and Limited Endurance Treatment time Units charged ADL: 1 (theract) Time with patient Length of Evaluation: 19 Total treatment time: 31 Patient Education Education Patient Education: Home Safety, Activity Modification and Education of Plan of Care Teaching Recipient: Patient Teaching Methods: Discussion and Demonstration Assessment Assessment Problem List:: Decreased level of function, Requires training/education, Decreased safety/Risk of falls, Weakness and Pain limits previous level of function Rehab Potential: Good Further Therapy Indicated?: Yes Candidate for Swing Bed for Therapy Services?: Feel pt may be a candidate for swing bed for therapy if pt is agreeable. Evaluation Complexity: HISTORY: Medium, EXAM OF BODY SYSTEMS: Medium, CLINICAL PRESENTATION: Medium and CLINICAL DECISION MAKING: Medium Patient's Goal(s): I want to go home to my dogs. Short Term Goals GOAL #1: pt demonstrate rolling and scooting in bed independently. Goal to be met by: 01/06/23 GOAL #2: pt transfer sup to /from sit min x 1 Goal to be met by: 01/06/23 GOAL #3: Transfer sit to/from stand CGA Goal to be met by: 01/06/23 GOAL #4: pt amb 60ft with rwx with CGA Goal to be met by: 01/06/23 Shelter Goals GOAL #1: pt transfer sup to/from sit to/from stand independently Goal to be met by: 01/10/23 GOAL #2: pt amb functional household distances with rwx SBA x 1 Goal to be met by: 01/10/23 GOAL #3: pt ascend/descend 1 step with SBA to enter/exit home Goal to be met by: 01/10/23 Plan Plan of Care: Therapeutic EX, Neuromuscular Re-Educ and Self-Care/Home Management Frequency of Treatment: 1-2 X day, as tolerated Duration of Treatment: 5-7 days Anticipated Discharge Destination: Home Treatment Diagnosis (ICD 10 Codes): difficulty walking R26.2 impaired balance R 26.81 falls R 29.6 weakness M62.81 multiple sclerosis L superior and inferior pubic rami fx and sacral fx Has the Physician been added for Co-signature?: Yes
[2023-01-03] MEDS ORDERED: ZONEGRAN PO SCH ×2 (13:00)
[2023-01-03] MEDS: FLEXERIL PO PRN ×2 (14:45→20:08)
[2023-01-03] MEDS: FINGOLIMOD 0.5 MG PO SCH (16:49)
[2023-01-03] MEDS: LAMOTRIGINE 100 MG PO SCH (20:09)
[2023-01-03] MEDS: ZONEGRAN PO SCH (20:57)
[2023-01-04] MEDS: PROTONIX PO SCH (05:34)
[2023-01-04 05:47] LABS: BASOPHILS % (AUTO) 0.4 % (0.0-3.0); EOSINOPHILS # (AUTO) 0.2 K/ul (0.0-0.7); EOSINOPHILS % (AUTO) 3.6 % (0.0-7.0); HEMATOCRIT 42.9 % (37.0-47.0); HEMOGLOBIN 13.6 g/dl (12.0-16.0); IMMATURE GRANULOCYTE % (AUTO) 0.2 % (0.0-5.0); LYMPHOCYTES # (AUTO) 0.5 K/uL (0.60-3.4); MEAN CORPUSCULAR HEMOGLOBIN 30.7 pg (27.0-31.0); MEAN CORPUSCULAR HGB CONC 31.7 (31.8-35.4); MEAN CORPUSCULAR VOLUME 96.8 fl (81.0-99.0); MONOCYTES # (AUTO) 0.6 K/uL (0.4-2.0); MONOCYTES % (AUTO) 14.3 (0-10); NEUTROPHILS # (AUTO) 3.2 K/ul (2.0-6.9); NEUTROPHILS % (AUTO) 71.5 % (42.2-75.2); PLATELET COUNT 190 10^3/uL (140-440); RDW COEFFICIENT OF VARIATION 14.6 % (11.6-14.8); RED BLOOD COUNT 4.43 10^6/ul (4.20-5.40); WHITE BLOOD COUNT 4.48 K/ul (4.6-10.2)
[2023-01-04 06:04] LABS: ALANINE AMINOTRANSFERASE 14.7 U/L (0-35); ALBUMIN 3.88 g/dL (3.5-5.0); ALKALINE PHOSPHATASE 127.2 U/L (53-141); ASPARTATE AMINO TRANSFERASE 22.7 U/L (14-36); BILIRUBIN,TOTAL 0.45 mg/dL (0.2-1.3); BLOOD UREA NITROGEN 17.2 mg/dL (7-17); CALCIUM 8.63 mg/dL (8.4-10.2); CARBON DIOXIDE 28.4 mmol/L (22-30.0); CHLORIDE 107.2 mmol/L (98-107); CREATININE 0.75 mg/dL (0.60-1.30); GLUCOSE 101.2 mg/dL (74-106); POTASSIUM 4.48 mmol/L (3.5-5.1); SODIUM 138.9 mmol/L (134.5-145); TOTAL PROTEIN 6.82 g/dL (6.3-8.2)
[2023-01-04] MEDS: MIRALAX PO SCH (09:04)
[2023-01-04] MEDS: COLACE PO SCH ×2 (09:05→20:59)
[2023-01-04] MEDS: ZOLOFT PO SCH (09:05)
[2023-01-04] MEDS: ZONEGRAN PO SCH ×2 (09:05→21:01)
[2023-01-04] MEDS: SPIRIVA IH SCH (09:07)
[2023-01-04] MEDS: LAMOTRIGINE 100 MG PO SCH ×2 (09:07→21:00)
[2023-01-04] MEDS: SYMBICORT 160-4.5 MCG INHALER IH SCH ×2 (09:07→20:59)
[2023-01-04] MEDS: FINGOLIMOD 0.5 MG PO SCH (09:12)
--- NOTE | 2023-01-04 11:56 | PCM.PROG ---
Date/Time Seen Date Seen by Provider: 01/04/23 Time Seen by Provider: 08:50 Provider Provider: [facility] Chief Complaint Chief Complaint: FRACTURED PELVIS, INTRACTABLE PAIN, L FOOT FRACTUR Subjective Subjective: Patient's pain much improved today. She is tolerating some therapy. Taking out catheter today. Doesn't feel flexeril is making her too sleepy. Does have pain while participating with therapy. Objective Appearance: Positive Well-appearing, Well-nourished, No Apparent Distress and Alert and Oriented x3 Chest/Lungs: Positive Symmetrical With Equal Breath Sounds and Wheezes (mansi, chronic ) Heart: Positive RRR GI/: Positive Soft, Nontender, Bowel Sounds Normal and No Distention Musculoskeletal: Positive Other (+generalized weakness, left sided weakness. Pain with rom of left hip. Pulses intact. No edema. ) Neurological: Positive Cranial Nerves Intact and Alert Vital Signs Vital Signs: Vital Signs: Last 24 Hours 01/03/23 14:00 01/03/23 14:00 01/03/23 13:00 Temperature 96.9 F L Temperature Source Temporal Artery Scan Pulse Rate 73 Pulse Rate [Apical] Respiratory Rate 14 Blood Pressure 94/52 L Blood Pressure Mean 66 Blood Pressure Location Right Arm Blood Pressure Position Sitting O2 Sat by Pulse Oximetry 94 L Oxygen Delivery Method Nasal Cannula Nasal Cannula Oxygen Flow Rate 2 1 Telemetry Type Remote Telemetry Telemetry Monitoring Continues Telemetry Heart Rate 72 EKG IA Interval 0.15 EKG QRS Interval 0.10 EKG QT Interval Telemetry Strip Reading NSR 01/03/23 19:00 01/03/23 20:00 01/03/23 21:31 Temperature 97.3 F L Temperature Source Temporal Artery Scan Pulse Rate 69 Pulse Rate [Apical] Respiratory Rate 18 Blood Pressure 105/63 Blood Pressure Mean 77 Blood Pressure Location Left Arm Blood Pressure Position Supine O2 Sat by Pulse Oximetry 96 Oxygen Delivery Method Nasal Cannula Room Air Oxygen Flow Rate 1 Telemetry Type Remote Telemetry Telemetry Monitoring Continues Telemetry Heart Rate 70 EKG IA Interval 0.15 EKG QRS Interval 0.09 EKG QT Interval 0.39 Telemetry Strip Reading NSR no ectopy noted 01/03/23 20:00 01/04/23 01:00 01/04/23 05:17 Temperature Temperature Source Pulse Rate Pulse Rate [Apical] 88 Respiratory Rate 16 Blood Pressure Blood Pressure Mean Blood Pressure Location Blood Pressure Position O2 Sat by Pulse Oximetry Oxygen Delivery Method Nasal Cannula Nasal Cannula Oxygen Flow Rate 1 1 Telemetry Type Remote Telemetry Telemetry Monitoring Continues Telemetry Heart Rate 65 EKG IA Interval 0.18 EKG QRS Interval 0.08 EKG QT Interval 0.40 Telemetry Strip Reading SR no ectopy noted 01/04/23 05:21 01/04/23 07:00 01/04/23 08:00 Temperature 96.4 F L Temperature Source Temporal Artery Scan Pulse Rate 66 Pulse Rate [Apical] Respiratory Rate 18 Blood Pressure 104/64 Blood Pressure Mean 77 Blood Pressure Location Left Arm Blood Pressure Position Supine O2 Sat by Pulse Oximetry 98 Oxygen Delivery Method Nasal Cannula Nasal Cannula Oxygen Flow Rate 2 1 Telemetry Type Remote Telemetry Telemetry Monitoring Continues Telemetry Heart Rate 63 EKG IA Interval 0.17 EKG QRS Interval 0.09 EKG QT Interval Telemetry Strip Reading SR 01/04/23 10:00 Temperature Temperature Source Pulse Rate Pulse Rate [Apical] Respiratory Rate Blood Pressure Blood Pressure Mean Blood Pressure Location Blood Pressure Position O2 Sat by Pulse Oximetry 96 Oxygen Delivery Method Nasal Cannula Oxygen Flow Rate 1 Telemetry Type Telemetry Monitoring Telemetry Heart Rate EKG IA Interval EKG QRS Interval EKG QT Interval Telemetry Strip Reading Lab Results Lab Results: Lab Results: Last 24 Hours 01/04/23 05:37 WBC 4.48 L RBC 4.43 Hgb 13.6 Hct 42.9 MCV 96.8 MCH 30.7 MCHC 31.7 L RDW Coeff of Katharina 14.6 Plt Count 190 Immature Gran % (Auto) 0.2 Neut % (Auto) 71.5 Lymph % (Auto) 10.0 [place] % (Auto) 14.3 H Eos % (Auto) 3.6 Baso % (Auto) 0.4 Neut # (Auto) 3.2 Lymph # (Auto) 0.5 L [place] # (Auto) 0.6 Eos # (Auto) 0.2 Baso # (Auto) 0.0 Immature Gran # (Auto) 0.0 Sodium 138.9 Potassium 4.48 Chloride 107.2 H Carbon Dioxide 28.4 Anion Gap 7.78 BUN 17.2 H Creatinine 0.75 Estimated GFR (MDRD) 77.00 BUN/Creatinine Ratio 22.93 Glucose 101.2 Calcium 8.63 Total Bilirubin 0.45 AST 22.7 ALT 14.7 Alkaline Phosphatase 127.2 Total Protein 6.82 Albumin 3.88 Globulin 2.94 Albumin/Globulin Ratio 1.31 Additional Comments Additional Comments: I have independently reviewed and interpreted the labs/EKGs/imaging ordered during this hospital stay. I have reviewed outside records that are available in our EMR that pertain to medical stay including imaging/notes/labs from previous visits. Active Medications Active Medications: Medications Generic Name Dose Route Start Last Admin Trade Name Freq PRN Reason Stop Dose Admin Acetaminophen 650 mg 01/02/23 19:08 Acetaminophen 325 Mg Tablet PO Q4H PRN Mild Pain Hydrocodone Bitart/Acetaminophen 1 tab 01/02/23 19:08 01/03/23 20:09 Hydrocodone Bit/Acetaminophen 5/325 Mg Tablet PO 1 tab Q6HR PRN Administration Pain Bisacodyl 5 mg 01/02/23 19:08 Bisacodyl 5 Mg Tablet.Dr PO DAILY PRN Constipation Budesonide/Formoterol Fumarate 1 puff 01/03/23 09:00 01/04/23 09:07 Budesonide/Formoterol Fumarate 160/4.5 Mcg Inhaler IH 1 puff BID BETTINA Administration Cyclobenzaprine HCl 10 mg 01/03/23 09:51 01/03/23 20:08 Cyclobenzaprine Hcl 10 Mg Tablet PO 10 mg TID PRN Administration Spasms Docusate Sodium 100 mg 01/02/23 21:00 01/04/23 09:05 Docusate Sodium 100 Mg Capsule PO 100 mg BID BETTINA Administration Lorazepam 0.5 mg 01/03/23 07:20 Lorazepam 0.5 Mg Tablet PO BID PRN Anxiety Morphine Sulfate 2 mg 01/02/23 19:08 01/03/23 03:00 Morphine Sulfate 2 Mg/Ml Syringe IVP 2 mg Q4HR PRN Administration pain Non-Formulary Medication 0.5 mg 01/03/23 16:45 01/04/23 09:12 Fingolimod [Gilenya] PO 0.5 mg DAILY BETTINA Administration Non-Formulary Medication 200 mg 01/03/23 21:00 01/04/23 09:07 Lamotrigine [Lamictal] PO 200 mg BID BETTINA Administration Ondansetron HCl 4 mg 01/02/23 19:12 Ondansetron Hcl/Pf 4 Mg/2 Ml Sdv IVP Q6H PRN Nausea / Vomiting Pantoprazole Sodium 40 mg 01/03/23 09:00 01/04/23 05:34 Pantoprazole Sodium 40 Mg Tablet.Dr PO 40 mg QDAC BETTINA Administration Polyethylene Glycol 17 gm 01/03/23 09:00 01/04/23 09:04 Polyethylene Glycol 17 Gm Powd.Pack PO 17 gm DAILY BETTINA Administration Sertraline HCl 100 mg 01/03/23 09:00 01/04/23 09:05 Sertraline Hcl 50 Mg Tablet PO 100 mg DAILY BETTINA Administration Sodium Chloride 1 syr 01/03/23 21:00 01/04/23 05:33 0.9% Sodium Chloride 10 Ml Disp.Syrin IVF 1 syr Q8HR BETTINA Administration Tiotropium [place] 1 cap 01/03/23 09:00 01/04/23 09:07 Tiotropium [place] 18 Mcg Cap.W.Dev IH 1 cap DAILY BETTINA Administration Zonisamide 100 mg 01/03/23 21:00 01/04/23 09:05 Zonisamide 100 Mg Capsule PO 100 mg BID BETTINA Administration Plan Plan: A&P: 1. Severe intractable pain in setting of superior and inferior pubic rami fractures and sacral fracture - Improved. PT/OT. Potential swing bed candidate. Morphine and norco ordered prn as well. Will do flexeril tid prn, however notified patient to let us know if it makes her too drowsy. 2. Acute superior and inferior pubic rami and sacral fracture - Plan as above. Will need outpatient ortho follow up. 3. COPD- Continue home meds 4. MS - Continue home meds 5. Seizures, controlled - Continue home meds 6. GERD - Continue home meds 7. Anxiety - Continue home meds Dispo - Patient would make a great swing bed candidate. DVT Prophylaxis: Lovenox Review Statement Review Statement: I have personally discussed and reviewed the patient's visit/currently l abs/imaging/decision making with Dr. Mathews, my supervising attending. Greater that 50 minutes spent with patient, 50% of the time spent with this patient was devoted to counseling and coordination of care.
[2023-01-04] MEDS: NORCO 5-325 PO PRN ×2 (12:25→21:00)
[2023-01-04] MEDS: FLEXERIL PO PRN ×2 (14:22→21:00)
--- NOTE | 2023-01-04 17:55 | RS.OTINEVL ---
Subjective Patient information Date of Evaluation: 01/04/23 Date of Arrival on Unit: 01/02/23 Admitted From:: Home Diagnosis: Closed fracture of inferior & Superior pubic santiago & sacral PRECAUTIONS: Fall risk, tremors in BUE, MS Usual Living Arrangement: niece & 2 kids lives w/ pt Living Arrangement Comments: Pt niece and her 2 kids lives with her Home Environment: House and Stairs (few) (1 step) Medical History: COPD and Cancer (lung) Medical History Comments:: osteoporosis, seizures, multiple sclerosis, migraines, anxiety LATEX ALLERGY?: No Surgical History: Hysterectomy Surgical History Comments:: appey Medications: see chart Subjective Information/ Patient Comments:: "In 3 months time, I got cancer, I fractured my foot and I fractured my pelvis. 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 Pain Assessment Pain Pain Score: 3 Side: right Pain Location Body Site: Hip Pain Aggravating Factors: Changing Position, Standing and Sitting Pain Alleviating Factors: Medication, Position Change, Sitting and Standing Interventions Objective Patient Orientation: Person, Place and Situation Observation: Pt moderate assistance for sit to stand from the recliner. Pt is min A to stand from EOB and transfer to chair. Pt LUE strength is 3-/5, RUE is 4-/5. 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 Balance Sitting Balance Static Sitting Balance: Good Dynamic Sitting Balance: Good Standing Balance Static Standing Balance: Poor Dynamic Standing Balance: Poor ADL Skills Self Feeding Self Feeding: Independent Grooming Grooming: Min Assist and 1 person assist Bathing Bathing UE: Independent and 1 person assist Bathing LE: Mod Assist and 1 person assist Bathing Set-up: Bedside Dressing Dressing UE: CGA Dressing LE: Max Assist and 1 person assist Toilet Management Toilet Hygiene: Independent Toilet Clothing Management: Mod Assist Functional Mobility Transfers Sit to Stand: Mod Assist and 1 person assist Stand to Sit: Min Assist and 1 person assist Stand Pivot Transfers: Mod Assist Ambulation Weight Bearing Status: FWB Assistive Device Used: No Assistive Device Assistance needed with Ambulation: Min Assist and 1 person assist Safety Awareness Safety Awareness: Good BAIORN INDEX SCORE: . Additional Treatment Performed Additional units charged ADL: 17 Time with patient Length of Evaluation: 27 Total treatment time: 44 Activities Do you enjoy playing games?: Yes Would you be interested in leaving your room for activities?: Yes Would you enjoy group activities?: Yes Do you have difficulty with your vision?: No Patient Interests:: Watching Television and Visiting/Socializing Patient Education Patient Education: Education of diagnosis, Home Exercise Program, Home Safety and Education of Plan of Care Teaching Recipient: Patient Teaching Methods: Teach Back Method Used and Discussion Assessment Problem List:: Decreased level of function, Requires training/education, Decreased safety/Risk of falls, Weakness and Pain limits previous level of function Rehab Potential: Good Further Therapy Indicated?: Yes Candidate for Swing Bed for Therapy Services?: yes Evaluation Complexity: HISTORY: Medium, EXAM OF BODY SYSTEMS: Medium and CLINICAL DECISION MAKING: Medium Patient's Goal(s): To be able to take care of her ADLS and go home. Short Term Goals Goals GOAL 1: Pt to increase toilet transfers to CGA. Goal to be met by: 01/11/23 GOAL 2: Pt to increase BUE strength to 4+/5. Goal to be met by: 01/11/23 GOAL 3: Pt to be CGA with LE dressing with Adaptive equipment. Goal to be met by: 01/11/23 GOAL 4: Pt to increase activity tolerance to 15 minutes in standing. Goal to be met by: 01/11/23 Cloth Finishing Range Back Tender Goals GOAL 1: Pt to be Independent with toilet transfers. Goal to be met by: 01/18/23 GOAL 2: Pt to increase BUE strength is 5/5. Goal to be met by: 01/18/23 GOAL 3: Pt to be Independent with LE dressubg with AD. Goal to be met by: 01/18/23 Plan Plan of Care: Therapeutic EX, Therapeutic Activity and Self-Care/Home Management Frequency of Treatment: 1-2 X day, as tolerated Duration of Treatment: 2 Weeks Anticipated Discharge Destination: Home Treatment Diagnosis (ICD 10 Codes): Weakness R53.1, Z74.1 Need for assistance with personal care Has the Physician been added for Co-signature?: Yes
[2023-01-04] MEDS: MORPHINE 2 MG/ML SYRINGE IVP PRN (19:30)
[2023-01-05 05:30] LABS: BASOPHILS % (AUTO) 0.2 % (0.0-3.0); EOSINOPHILS # (AUTO) 0.1 K/ul (0.0-0.7); EOSINOPHILS % (AUTO) 1.1 % (0.0-7.0); HEMOGLOBIN 13.2 g/dl (12.0-16.0); IMMATURE GRANULOCYTE % (AUTO) 0.3 % (0.0-5.0); LYMPHOCYTES # (AUTO) 0.5 K/uL (0.60-3.4); MEAN CORPUSCULAR HEMOGLOBIN 30.6 pg (27.0-31.0); MEAN CORPUSCULAR HGB CONC 32.2 (31.8-35.4); MEAN CORPUSCULAR VOLUME 95.1 fl (81.0-99.0); MONOCYTES # (AUTO) 0.8 K/uL (0.4-2.0); MONOCYTES % (AUTO) 7.1 (0-10); NEUTROPHILS # (AUTO) 9.9 K/ul (2.0-6.9); NEUTROPHILS % (AUTO) 87.3 % (42.2-75.2); PLATELET COUNT 205 10^3/uL (140-440); RDW COEFFICIENT OF VARIATION 14.3 % (11.6-14.8); RED BLOOD COUNT 4.31 10^6/ul (4.20-5.40); WHITE BLOOD COUNT 11.39 K/ul (4.6-10.2)
[2023-01-05 05:40] LABS: ALANINE AMINOTRANSFERASE 15.7 U/L (0-35); ALBUMIN 3.67 g/dL (3.5-5.0); ASPARTATE AMINO TRANSFERASE 25.4 U/L (14-36); BILIRUBIN,TOTAL 0.52 mg/dL (0.2-1.3); BLOOD UREA NITROGEN 17.3 mg/dL (7-17); CALCIUM 8.79 mg/dL (8.4-10.2); CARBON DIOXIDE 26.4 mmol/L (22-30.0); CHLORIDE 106.1 mmol/L (98-107); CREATININE 0.85 mg/dL (0.60-1.30); GLUCOSE 134.9 mg/dL (74-106); POTASSIUM 3.93 mmol/L (3.5-5.1); SODIUM 136.4 mmol/L (134.5-145); TOTAL PROTEIN 6.7 g/dL (6.3-8.2)
[2023-01-05] MEDS: PROTONIX PO SCH (06:06)
[2023-01-05] MEDS: COLACE PO SCH (09:58)
[2023-01-05] MEDS: ZOLOFT PO SCH (09:59)
[2023-01-05] MEDS: FINGOLIMOD 0.5 MG PO SCH (10:01)
[2023-01-05] MEDS: LAMOTRIGINE 100 MG PO SCH (10:02)
[2023-01-05] MEDS: ZONEGRAN PO SCH (10:04)
[2023-01-05] MEDS: SPIRIVA IH SCH (10:05)
[2023-01-05] MEDS: SYMBICORT 160-4.5 MCG INHALER IH SCH (10:06)
[2023-01-05] MEDS: MIRALAX PO SCH (10:08)
[2023-01-05] MEDS: MORPHINE 2 MG/ML SYRINGE IVP PRN (11:00)
[2023-01-05 14:30] VITALS: BP 103/60; RESP 18; TEMP 97.6
--- NOTE | 2023-01-05 14:32 | PCM.PROG ---
Date/Time Seen Date Seen by Provider: 01/05/23 Time Seen by Provider: 09:10 Provider Provider[facility] Chief Complaint Chief Complaint: FRACTURED PELVIS, INTRACTABLE PAIN, L FOOT FRACTUR Subjective Subjective: Patient still having pain of left pelvis area and left foot. States it hurts to bear weight. She required IV morphine last night and today. She is trying with therapy. Objective Appearance: Positive Well-appearing, Well-nourished, No Apparent Distress and Alert and Oriented x3 Chest/Lungs: Positive Symmetrical With Equal Breath Sounds and Wheezes (mansi, improved today) Heart: Positive RRR GI/: Positive Soft and Bowel Sounds Normal Musculoskeletal: Positive Other (+generalized weakness, left sided weakness. Pain with rom of left hip. Pulses intact. No edema. Left foot - bruising noted along lateral aspect. ) Neurological: Positive Cranial Nerves Intact and Alert Vital Signs Vital Signs: Vital Signs: Last 24 Hours 01/04/23 19:10 01/04/23 22:00 01/04/23 20:00 Temperature 96.6 F L Temperature Source Temporal Artery Scan Pulse Rate 72 Pulse Rate [Apical] 82 Respiratory Rate 16 16 Blood Pressure 110/69 Blood Pressure Mean 82 Blood Pressure Location Right Arm Blood Pressure Position Sitting O2 Sat by Pulse Oximetry 93 L Oxygen Delivery Method Room Air Room Air Room Air 01/05/23 05:30 01/05/23 05:41 01/05/23 10:00 Temperature 97.9 F Temperature Source Temporal Artery Scan Pulse Rate 78 Pulse Rate [Apical] Respiratory Rate 16 Blood Pressure 114/68 Blood Pressure Mean 83 Blood Pressure Location Right Arm Blood Pressure Position O2 Sat by Pulse Oximetry 94 L 95 Oxygen Delivery Method Room Air Room Air Room Air 01/05/23 14:00 Temperature Temperature Source Pulse Rate Pulse Rate [Apical] Respiratory Rate Blood Pressure Blood Pressure Mean Blood Pressure Location Blood Pressure Position O2 Sat by Pulse Oximetry 95 Oxygen Delivery Method Room Air Lab Results Lab Results: Lab Results: Last 24 Hours 01/05/23 05:16 WBC 11.39 H D RBC 4.31 Hgb 13.2 Hct 41.0 MCV 95.1 MCH 30.6 MCHC 32.2 RDW Coeff of Katharina 14.3 Plt Count 205 Immature Gran % (Auto) 0.3 Neut % (Auto) 87.3 H Lymph % (Auto) 4.0 L [place] % (Auto) 7.1 Eos % (Auto) 1.1 Baso % (Auto) 0.2 Neut # (Auto) 9.9 H Lymph # (Auto) 0.5 L [place] # (Auto) 0.8 Eos # (Auto) 0.1 Baso # (Auto) 0.0 Immature Gran # (Auto) 0.0 Sodium 136.4 Potassium 3.93 Chloride 106.1 Carbon Dioxide 26.4 Anion Gap 7.83 BUN 17.3 H Creatinine 0.85 Estimated GFR (MDRD) 67.00 BUN/Creatinine Ratio 20.35 Glucose 134.9 H Calcium 8.79 Total Bilirubin 0.52 AST 25.4 ALT 15.7 Alkaline Phosphatase 122.0 Total Protein 6.70 Albumin 3.67 Globulin 3.03 Albumin/Globulin Ratio 1.21 Additional Comments Additional Comments: I have independently reviewed and interpreted the labs/EKGs/imaging ordered during this hospital stay. I have reviewed outside records that are available in our EMR that pertain to medical stay including imaging/notes/labs from previous visits. Active Medications Active Medications: Medications Generic Name Dose Route Start Last Admin Trade Name Freq PRN Reason Stop Dose Admin Acetaminophen 650 mg 01/02/23 19:08 Acetaminophen 325 Mg Tablet PO Q4H PRN Mild Pain Hydrocodone Bitart/Acetaminophen 1 tab 01/02/23 19:08 01/04/23 21:00 Hydrocodone Bit/Acetaminophen 5/325 Mg Tablet PO 1 tab Q6HR PRN Administration Pain Bisacodyl 5 mg 01/02/23 19:08 Bisacodyl 5 Mg Tablet. PO DAILY PRN Constipation Budesonide/Formoterol Fumarate 1 puff 01/03/23 09:00 01/05/23 10:06 Budesonide/Formoterol Fumarate 160/4.5 Mcg Inhaler IH 1 puff BID BETTINA Administration Cyclobenzaprine HCl 10 mg 01/03/23 09:51 01/04/23 21:00 Cyclobenzaprine Hcl 10 Mg Tablet PO 10 mg TID PRN Administration Spasms Docusate Sodium 100 mg 01/02/23 21:00 01/05/23 09:58 Docusate Sodium 100 Mg Capsule PO 100 mg BID BETTINA Administration Lorazepam 0.5 mg 01/03/23 07:20 Lorazepam 0.5 Mg Tablet PO BID PRN Anxiety Morphine Sulfate 2 mg 01/02/23 19:08 01/05/23 11:00 Morphine Sulfate 2 Mg/Ml Syringe IVP 2 mg Q4HR PRN Administration pain Non-Formulary Medication 0.5 mg 01/03/23 16:45 01/05/23 10:01 Fingolimod [Gilenya] PO 0.5 mg DAILY BETTINA Administration Non-Formulary Medication 200 mg 01/03/23 21:00 01/05/23 10:02 Lamotrigine [Lamictal] PO 200 mg BID BETTINA Administration Ondansetron HCl 4 mg 01/02/23 19:12 Ondansetron Hcl/Pf 4 Mg/2 Ml Sdv IVP Q6H PRN Nausea / Vomiting Pantoprazole Sodium 40 mg 01/03/23 09:00 01/05/23 06:06 Pantoprazole Sodium 40 Mg Tablet.Dr PO 40 mg QDAC BETTINA Administration Polyethylene Glycol 17 gm 01/03/23 09:00 01/05/23 10:08 Polyethylene Glycol 17 Gm Powd.Pack PO 17 gm DAILY BETTINA Administration Sertraline HCl 100 mg 01/03/23 09:00 01/05/23 09:59 Sertraline Hcl 50 Mg Tablet PO 100 mg DAILY BETTINA Administration Sodium Chloride 1 syr 01/03/23 21:00 01/05/23 06:06 0.9% Sodium Chloride 10 Ml Disp.Syrin IVF 1 syr Q8HR BETTINA Administration Tiotropium [place] 1 cap 01/03/23 09:00 01/05/23 10:05 Tiotropium [place] 18 Mcg Cap.W.Dev IH 1 cap DAILY BETTINA Administration Zonisamide 100 mg 01/03/23 21:00 01/05/23 10:04 Zonisamide 100 Mg Capsule PO 100 mg BID BETTINA Administration Plan Plan: A&P: 1. Severe intractable pain in setting of superior and inferior pubic rami fractures and sacral fracture - Improved. PT/OT. Potential swing bed candidate. Morphine and norco ordered prn as well. Will do flexeril tid prn, however notified patient to let us know if it makes her too drowsy. Will add lidocaine patch. 2. Acute superior and inferior pubic rami and sacral fracture - Plan as above. Will need outpatient ortho follow up. 3. COPD- Continue home meds 4. MS - Continue home meds 5. Seizures, controlled - Continue home meds 6. GERD - Continue home meds 7. Anxiety - Continue home meds 8. Distal 5th metatarsal fracture, nondisplaced, left - X ray read as a healing fracture. Pt denies previous injury. Having notable bruising today. Dispo - Patient would make a great swing bed candidate. Awaiting insurance approval. DVT Prophylaxis: Lovenox Review Statement Review Statement: I have personally discussed and reviewed the patient's visit/currently labs/imaging/decision making with Dr. Mathews, my supervising attending. Greater that 50 minutes spent with patient, 50% of the time spent with this patient was devoted to counseling and coordination of care.
[2023-01-05] MEDS ORDERED: LIDODERM 5 % PATCH TP SCH (15:00)
--- NOTE | 2023-01-05 15:07 | DCSUM ---
Admission Date Admission Date: 01/02/23 Discharge Date Discharge Date: 01/05/23 Admission Diagnosis Admission Diagnosis: 1. Severe intractable pain in setting of superior and inferior pubic rami fractures and sacral fracture 2. Acute superior and inferior pubic rami and sacral fracture 3. Distal 5th metatarsal fracture, nondisplaced, left Discharge Diagnosis Discharge Diagnosis: 1. Weakness and debility in setting of superior and inferior pubic rami fractures and sacral fracture 2. Acute superior and inferior pubic rami and sacral fracture 3. COPD- Continue home meds 4. MS - Continue home meds 5. Seizures, controlled - Continue home meds 6. GERD - Continue home meds 7. Anxiety - Continue home meds 8. Distal 5th metatarsal fracture, nondisplaced, left Hospital Provider Hospital Provider: SHANEL SHARPE PA-C, [facility] ([facility]ist [facility] Primary Care Physician Primary Care Physician: KEITH BLACK Summary of History and Physical Summary of History and Physical: Patient is a 67-year-old female with past medical history of right lung cancer, multiple sclerosis, seizures, COPD, migraines who presented to the ER with a gr ound-level fall. She states that she was just getting up to go inside and fell onto concrete onto her left side. She denies any loss of consciousness. No chest pain, dizziness prior to fall. She states she does have a history of osteoporosis but has been waiting insurance to get medication approved. In the ER she was found to have a left superior and inferior pubic rami fractures. She also has a fracture of the sacrum. No hip fracture. She was given fluids, morphine, Valium in the ER. Robles was inserted. She was admitted to [facility]. Overnight patient continued to have pain and required muscle relaxers and morphine. Morphine did cause her oxygen to drop slightly. She mostly complains of spasm-like pain in her left hip and groin. She has a chronic cough from her COPD and every time she coughs she has significant pain in her hip. Regarding her seizure she states that this is very controlled and she has not had one in a long time. Regarding her left lung cancer she is status post chemo and radiation. She followed with oncology in [place]. She got her port taken out just a few weeks ago since it had not been used in a long time. She states because of her radiation she is chronically wheezy at baseline. Hospital Course Subjective: Patient was treated with iv morphine, po norco and flexeril, and lidocaine patch. She worked with therapy and had improvement. Not safe at this time to go home. Doesn't have much support at home. Will admit to swingbed for further therapy and goals to discharge to home. Patient agreeable to plan of care. Will discharge to swingbed today. Appearance: Pleasant, No Apparent Distress and Alert HEENT: MMM CVS: No Murmur Abdomen: Soft, Non-Tender and No Distention Respiratory: No Accessory Muscle Use Extremities: No Edema Additional Findings: +generalized weakness, left sided weakness. Pain with rom of left hip. Pulses intact. No edema. Left foot - bruising noted along lateral aspect. Vital Signs: Most Recent Vital Signs Temperature 97.6 F 01/05/23 14:00 Temperature Source Temporal Artery Scan 01/05/23 14:00 Temperature Source Infrared 01/02/23 13:40 Pulse Rate 84 01/05/23 14:00 Respiratory Rate 18 01/05/23 14:00 Blood Pressure 103/60 01/05/23 14:00 Blood Pressure Mean 74 01/05/23 14:00 Blood Pressure Left Arm 114/69 01/02/23 18:32 Blood Pressure Location Right Arm 01/05/23 14:00 Blood Pressure Position Supine 01/05/23 14:00 O2 Sat by Pulse Oximetry 94 L 01/05/23 14:00 Oxygen Delivery Method Room Air 01/05/23 14:00 Oxygen Flow Rate 1 01/04/23 10:00 Height 5 ft 1 in 01/02/23 18:32 Weight 112 lb 01/02/23 18:32 Telemetry Type Remote Telemetry 01/04/23 07:00 Telemetry Monitoring Continues 01/04/23 07:00 Irregular Telemetry Rate (Approximate) 60-70 BPM 01/03/23 07:00 Telemetry Heart Rate 63 01/04/23 07:00 EKG [place] Interval 0.17 01/04/23 07:00 EKG QRS Interval 0.09 01/04/23 07:00 EKG QT Interval 0.40 01/04/23 01:00 Telemetry Strip Reading SR 01/04/23 07:00 Imaging: EXAM: LEFT FOOT RADIOGRAPH TECHNIQUE: 3 views. Frontal, lateral, and oblique. HISTORY: Left foot pain. COMPARISON: None. FINDINGS: There is a healing nondisplaced fracture of the fifth metatarsal bone distally with oblique configuration. There is moderate hallux valgus. Mild soft tissue swelling laterally. There is a small plantar spur. IMPRESSION: 1. Healing fracture of the distal fifth metatarsal bone. EXAM: LEFT HIP AND PELVIS RADIOGRAPH TECHNIQUE: 3 views. Frontal pelvis. Frontal and lateral left hip. HISTORY: Left hip pain and pelvic pain. COMPARISON: None. FINDINGS: There is no fracture or dislocation. The soft tissues are normal. Articular surfaces are intact. IMPRESSION: 1. Unremarkable images of the left hip and pelvis. EXAM: CT PELVIS WITHOUT CONTRAST. HISTORY: Wall with left hip pain. Pain through the left side of the groin. COMPARISON: Pelvis and left hip radiograph 01/02/2023. TECHNIQUE: Noncontrast CT images of the pelvis were obtained. Axial reconstructions with sagittal and coronal reformats were provided. FINDINGS: Mild intervertebral the space narrowing at the level of the visualized lower lumbar spine. Demineralization. Comminuted fracture with mild displacement involving the medial portion of the left superior pubic ramus through the parasymphyseal portion of the bone with minimally-displaced fracture through the left inferior pubic ramus as well. Minimal cortical irregularity and buckling of the anterior cortex of the left sacral ala, concerning for subtle insufficiency fracture at that level. Degenerative spurring at the sacroiliac joints with moderate degenerative spurring at the pubic symphysis. Mild degenerative spurring of the hip joints. No acute fracture identified. The level of the proximal femurs. Mild subcutaneous edema without a deep decubitus ulcer or drainable fluid collection. Soft tissue swelling is most pronounced posteriorly in the inferior left gluteal region through the posteromedial aspect of the proximal thighs. No deep soft tissue gas. Robles catheter in place. No pathologically enlarged intrapelvic lymph nodes or pelvic soft tissue mass. Scattered vascular calcifications. No free fluid in the pelvis. IMPRESSION: Acute fractures with mild displacement involving the left superior and inferior pubic rami as described as well as suspected subtle insufficiency fracture of the left sacrum. Demineralization. Soft tissue swelling without drainable fluid collection. Additional chronic / degenerative findings as described above Lab Results Last 24 Hours: 01/05/23 05:16 WBC 11.39 H D RBC 4.31 Hgb 13.2 Hct 41.0 MCV 95.1 MCH 30.6 MCHC 32.2 RDW Coeff of Katharina 14.3 Plt Count 205 Immature Gran % (Auto) 0.3 Neut % (Auto) 87.3 H Lymph % (Auto) 4.0 L [place] % (Auto) 7.1 Eos % (Auto) 1.1 Baso % (Auto) 0.2 Neut # (Auto) 9.9 H Lymph # (Auto) 0.5 L [place] # (Auto) 0.8 Eos # (Auto) 0.1 Baso # (Auto) 0.0 Immature Gran # (Auto) 0.0 Sodium 136.4 Potassium 3.93 Chloride 106.1 Carbon Dioxide 26.4 Anion Gap 7.83 BUN 17.3 H Creatinine 0.85 Estimated GFR (MDRD) 67.00 BUN/Creatinine Ratio 20.35 Glucose 134.9 H Calcium 8.79 Total Bilirubin 0.52 AST 25.4 ALT 15.7 Alkaline Phosphatase 122.0 Total Protein 6.70 Albumin 3.67 Globulin 3.03 Albumin/Globulin Ratio 1.21 Discharge Instructions Discharge Planning: Discharge Planning > [address] Talib Mathews. Discharge Medications: Medications at Discharge (Home Meds & RX) esomeprazole magnesium 40 mg capsule,delayed release 40 mg PO DAILY 03/16/19 fingolimod 0.5 mg capsule (Gilenya) 0.5 mg PO DAILY 03/16/19 lorazepam 0.5 mg tablet (Ativan) 0.5 mg PO BID PRN Anxiety 03/16/19 zonisamide 100 mg capsule 100 mg PO BID 03/16/19 budesonide-formoterol HFA 160 mcg-4.5 mcg/actuation aerosol inhaler (Symbicort) 1 inh inhalation BID 01/02/23 hydrocodone 5 mg-acetaminophen 325 mg tablet 1 tab PO Q6H PRN moderate pain (scale score 5-6) 01/02/23 sertraline 100 mg tablet 100 mg PO DAILY 01/02/23 tiotropium bromide 2.5 mcg/actuation mist for inhalation (Spiriva Respimat) 2 inh inhalation DAILY 01/02/23 lamotrigine 100 mg tablet (Lamictal) 200 mg PO BID 01/03/23 Discharge Plan Discharge Discharge Orders: Discharge Patient (ONCE); Ordered 01/05/23 Ordered By: SHANEL SHARPE Activity Restrictions/Additional Instructions: YOU HAVE BEEN REFERRED TO [facility]. THEY WILL BE IN TOUCH WITH YOU TO SET UP AN APPOINTMENT. SHOULD YOU HAVE ANY QUESTIONS YOU CAN CONTACT THEIR OFFICE AT [phone]. Patient Disposition: DISCH W/I HOSP TO SWING BD Prescriptions: Continued sertraline 100 mg tablet 100 mg PO DAILY budesonide-formoterol [Symbicort] 160-4.5 mcg/actuation HFA aerosol inhaler 1 inh inhalation BID Spiriva Respimat 2.5 mcg/actuation mist 2 inh inhalation DAILY lamotrigine [Lamictal] 100 mg tablet 200 mg PO BID zonisamide 100 MG capsule 100 mg PO BID lorazepam [Ativan] 0.5 MG tablet 0.5 mg PO BID PRN (Reason: Anxiety) esomeprazole magnesium 40 MG capsule,delayed release(DR/EC) 40 mg PO DAILY fingolimod [Gilenya] 0.5 MG capsule 0.5 mg PO DAILY No Action hydrocodone-acetaminophen 5-325 mg tablet 1 tab PO Q6H PRN (Reason: moderate pain (scale score 5-6)) albuterol sulfate 90 mcg/actuation HFA aerosol inhaler 2 inh inhalation Q4H PRN (Reason: shortness of breath or wheezing) Did you review [place] PLATING OPERATOR for ALL controlled substances?: Not Applicable Discussed opioids are addictive and Narcan is available by prescription or from pharmacy.: No Condition: Stable
[2023-01-05 16:31] VITALS: PULSE 88
[2023-01-05] MEDS ORDERED: ZONEGRAN PO SCH (21:00)
--- NOTE | 2023-01-06 14:35 | RS.OTINEVL ---
Subjective <JOSE CHAU, OT - Last Filed: 01/06/23 14:41> Patient information Date of Evaluation: 01/04/23 Date of Arrival on Unit: 01/02/23 Admitted From:: In-House Transfer (transfer to swing bed for therapy) Diagnosis: Closed fracture of inferior & Superior pubic santiago & sacral PRECAUTIONS: Fall risk, tremors in BUE, MS Usual Living Arrangement: niece & 2 kids lives w/ pt Living Arrangement Comments: Pt niece and her 2 kids lives with her. Pt has a rollator and a walk in shower. Pt has 1 step to enter her home and no rail. Home Environment: House, Stairs (few) (1 step) and No rail Medical History: COPD and Cancer (lung CA) Medical History Comments:: L sup/inf pubic rami fx, sacral fx, L 5th metatarsal fx, multiple sclerosis, seizures, migraines, osteoporosis, anxiety LATEX ALLERGY?: No Surgical History: Hysterectomy Surgical History Comments:: appey Medications: see chart Subjective Information/ Patient Comments:: "Thank you for doing this. 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 Pt is able to get her legs in the bed with CGA. Pt is CGA for walking with Rollator to the shower. Pt completed her shower herself. Pt washed her hair and her body. Current Equipment Used at Home: has a rwx at home but did not have to use it (only when she had lung CA). Pain Assessment <JOSE CHAU OT - Last Filed: 01/06/23 14:41> Pain Pain Score: 8 Side: left Pain Location Body Site: Hip Pain Aggravating Factors: ADL's, Changing Position, Standing, Sitting and Walking Pain Alleviating Factors: Medication, Position Change, Sitting and Lying Supine Interventions <JOSE CHAU OT - Last Filed: 01/06/23 14:41> Objective Patient Orientation: Person, Place, Time and Situation Current Interventions: IV's Observation: Pt is very driven to be independent. Pt is SBA for sit to stand from recliner. Pt is SBA for sit to stand from Rollator walker. Pt showered with min A. Pt brushing her hair independently. Pt was max A with donning her brief and house shoes. Interventions <JOSE CHAU OT - Last Filed: 01/06/23 14:41> ROM Right Upper Extremity AROM: Slight limitation Left Upper Extremity AROM: Slight limitation Strength Right Upper Extremity: Mild Weakness Left Upper Extremity: Mild Weakness Sensation Right Upper Extremity: Intact/Normal Left Upper Extremity: Intact/Normal Balance <JOSE CHAU OT - Last Filed: 01/06/23 14:41> Sitting Balance Static Sitting Balance: Good Dynamic Sitting Balance: Good Standing Balance Static Standing Balance: Poor Dynamic Standing Balance: Poor ADL Skills <JOSE CHAU OT - Last Filed: 01/06/23 14:41> Grooming Grooming: Min Assist and 1 person assist Grooming Set-up: Sitting Bathing Bathing UE: Set Up Only Bathing LE: Max Assist Bathing Set-up: Shower Dressing Dressing UE: Set Up Only Dressing LE: Max Assist Toilet Management Toilet Hygiene: CGA Toilet Clothing Management: Mod Assist Functional Mobility <JOSE CHAU OT - Last Filed: 01/06/23 14:41> Bed Mobility Scooting: Independent Transfers Sit to Stand: CGA Stand to Sit: CGA Stand Pivot Transfers: Min Assist Ambulation Weight Bearing Status: FWB Assistive Device Used: Rollator Assistance needed with Ambulation: CGA and 1 person assist Safety Awareness Safety Awareness: Fair <SHANEL SHARPE PA-C - Last Filed: 01/06/23 14:35> BAIRON INDEX SCORE: Additional Treatment Performed <JOSE CHAU OT - Last Filed: 01/06/23 14:41> Additional units charged ADL: 15 Time with patient Length of Evaluation: 20 Total treatment time: 35 Activities <JOSE CHAU OT - Last Filed: 01/06/23 14:41> Do you enjoy playing games?: Yes Would you be interested in leaving your room for activities?: Yes Would you enjoy group activities?: Yes Do you have difficulty with your vision?: No What types of things do you enjoy doing? Any Hobbies?: TV, Crocheting Patient Interests:: Watching Television and Visiting/Socializing Patient Education <JOSE CHAU OT - Last Filed: 01/06/23 14:41> Patient Education: Body/Joint mechanics, Home Exercise Program and Home Safety Teaching Recipient: Patient Teaching Methods: Discussion and Demonstration Assessment <YENI STONER Last Filed: 01/06/23 14:41> Problem List:: Decreased level of function, Requires training/education, Decreased safety/Risk of falls, Weakness and Pain limits previous level of function Rehab Potential: Good Further Therapy Indicated?: Yes Candidate for Swing Bed for Therapy Services?: yes Comments: Pt requires assistance with ADLS at this time due to supra and infra pelvic fractures. Evaluation Complexity: HISTORY: Medium, EXAM OF BODY SYSTEMS: Medium and CLINICAL DECISION MAKING: Medium Patient's Goal(s): To get stronger where she can go home. Short Term Goals <YENI STONER Last Filed: 01/06/23 14:41> Goals GOAL 1: Pt to increase toilet transfers to CGA. Goal to be met by: 01/13/23 GOAL 2: Pt to increase BUE strength to 4+/5. Goal to be met by: 01/13/23 GOAL 3: Pt to be CGA with LE dressing with Adaptive equipment. Goal to be met by: 01/13/23 GOAL 4: Pt to increase activity tolerance to 15 minutes in standing. Goal to be met by: 01/11/23 Organ Installer Goals <YENI STONER Last Filed: 01/06/23 14:41> GOAL 1: Pt to be Independent with toilet transfers. Goal to be met by: 01/20/23 GOAL 2: Pt to increase BUE strength is 5/5. Goal to be met by: 01/20/23 GOAL 3: Pt to be Independent with LE dressingg with AD. Goal to be met by: 01/20/23 Plan <JOSE CHAU OT - Last Filed: 01/06/23 14:41> Plan of Care: Therapeutic EX, Neuromuscular Re-Educ, Therapeutic Activity and Self-Care/Home Management Frequency of Treatment: 1-2 X day, as tolerated Duration of Treatment: 2 Weeks Anticipated Discharge Destination: Home Treatment Diagnosis (ICD 10 Codes): Weakness R53.1, Z74.1 Need for assistance with personal care. Has the Physician been added for Co-signature?: Yes
== END 2023-01-05 16:30 | disposition swing bed (61) | DRG 536 ==
LOC: ED 13:34 → MEDSURG B 13:34 → OBSVTOIN 17:59 → MEDSURG B 18:18
PROVIDERS: ADMIT Hospitalist; ATTEND Physician Assistant
DX: G35 Multiple sclerosis; F41.9 Anxiety disorder, unspecified; S92.902A Unspecified fracture of left foot, initial encounter for closed fracture; K21.9 Gastro-esophageal reflux disease without esophagitis; R52 Pain, unspecified; J44.9 Chronic obstructive pulmonary disease, unspecified; W19.XXXA Unspecified fall, initial encounter; G40.909 Epilepsy, unspecified, not intractable, without status epilepticus; S32.592A Other specified fracture of left pubis, initial encounter for closed fracture; S32.512A Fracture of superior rim of left pubis, initial encounter for closed fracture